=== PATIENT | male | born 1980 ===

== ENCOUNTER 2022-07-08 10:50 | Inpatient (IN) | payer OTHER ==
[~2022-07-08] VITALS: Ht 180.3 cm; Wt 118.8 kg
[2022-07-08] MEDS ORDERED: SYNTHROID75 MCG PO (12:21)
[2022-07-08] MEDS ORDERED: PEPCID AC20 MG PO (12:22)
[2022-07-08] MEDS ORDERED: PROTONIX40 MG PO (12:22)
[2022-07-17] MEDS ORDERED: INTESTINEX680 M1 PO (08:23)
[2022-07-17] MEDS ORDERED: HYOSCYAMINE0.125 M1 SL (08:23)
[2022-07-17] MEDS ORDERED: TRAM1TAB98 PO (08:23)
== END 2022-07-17 10:36 | disposition home or self-care (01) | DRG 330 ==
LOC: O/R 07-11 08:00 → SURH 07-11 12:45
PROVIDERS: ADMIT Surgery; ATTEND Surgery
PROC: 0DBP4ZZ Excision of Rectum, Percutaneous Endoscopic Approach (ICD-10-PCS; 2022-07-11)
PROC: 07BC4ZZ Excision of Pelvis Lymphatic, Percutaneous Endoscopic Approach (ICD-10-PCS; 2022-07-11)
PROC: 0DJD8ZZ Inspection of Lower Intestinal Tract, Via Natural or Artificial Opening Endoscopic (ICD-10-PCS; 2022-07-11)
PROC: 0DTN4ZZ Resection of Sigmoid Colon, Percutaneous Endoscopic Approach (ICD-10-PCS; principal; 2022-07-11 17:45)
DX: C20 Malignant neoplasm of rectum (principal); K56.7 Ileus, unspecified; K91.89 Other postprocedural complications and disorders of digestive system; R19.4 Change in bowel habit; I10 Essential (primary) hypertension; E03.9 Hypothyroidism, unspecified; G47.30 Sleep apnea, unspecified

== ENCOUNTER 2022-08-08 06:00 | Day surgery (SDC) | payer OTHER ==
[~2022-08-08 06:00] MED LIST: HYOSCYAMINE0.125 M1 SL; INTESTINEX680 M1 PO; PEPCID AC20 MG PO; PROTONIX40 MG PO; SYNTHROID75 MCG PO; TRAM1TAB98 PO
[2022-08-08] MEDS ORDERED: TRAM1TAB98 PO (08:05)
== END 2022-08-08 11:10 | disposition home or self-care (01) ==
LOC: CIR.AMB 06:00
PROVIDERS: ATTEND Surgery
DX: C18.7 Malignant neoplasm of sigmoid colon (principal); R19.4 Change in bowel habit; Z20.822 Contact with and (suspected) exposure to COVID-19

== ENCOUNTER 2023-04-21 06:00 | Day surgery (SDC) | payer OTHER ==
[2023-04-16 11:16] LABS: URINE APPEARANCE Clear; URINE BILIRRUBIN Negative (NEGATIVE); URINE BLOOD Negative; URINE COLOR Yellow; URINE GLUCOSE Negative (NEGATIVE); URINE LEUKOCYTE Negative; URINE NITRATE Negative; URINE PROTEIN Negative (NEGATIVE); URINE UROBILINOGEN 0.2 E.U./dl
[2023-04-16 11:18] LABS: URINE RBC 3.7 uL (0.0-20.8)
[2023-04-16 11:20] LABS: HEMOGLOBIN 15.5 g/dL (13-16.00); MEAN CELL VOLUME 88.4 fL (80.0-100.00); MEAN CORPUSCULAR HEMOGLOBIN 31.2 pg (27.00-32.0); MEAN CORPUSCULAR HGB CONC 35.3 g/dl (32.0-36.0); PLATELET COUNT 175 K/uL (150-450); RED BLOOD COUNT 4.98 M/uL (4.00-6.00); RED CELL DISTRIBUTION WIDTH 12.6 % (11.5-14.5)
[2023-04-16 11:35] LABS: URINE BACTERIA 3.7 uL (0.0-1933); URINE EPITHELIAL CELLS 1.3 uL (0.0-38.8); URINE WBC 0.4 uL (0.0-23.2)
[2023-04-16 11:39] LABS: INR 1.02; PARTIAL THROMBOPLASTIN TIME 29.1 SECONDS (22.0-34.0); PROTHROMBIN TIME 10.7 SECONDS (9.0-11.5)
[2023-04-16 11:40] LABS: ALBUMIN 4.3 gm/dL (3.4-5.0); BILIRUBIN TOTAL 0.89 mg/dL (0.3-1.2); CALCIUM 9.6 mg/dL (8.5-10.1); CREATININE SERUM 1.09 mg/dL (0.70-1.30); GFR 73.15; GLOBULINA 3.6 G/DL (2.4-3.5); POTASSIUM 4.1 mEq/L (3.5-5.1); TOTAL PROTEIN 7.9 gm/dL (6.4-8.2)
[2023-04-21] MEDS ORDERED: TRAM1TAB98 PO (11:26)
== END 2023-04-21 13:00 | disposition home or self-care (01) ==
LOC: CIR.AMB 06:00
PROVIDERS: ATTEND Surgery
DX: C18.7 Malignant neoplasm of sigmoid colon (principal); R19.4 Change in bowel habit; I10 Essential (primary) hypertension

== ENCOUNTER 2024-09-09 06:59 | Day surgery (SDC) | payer OTHER ==
[~2024-09-09 06:59] MED LIST changes: +ZEPBOUND2.5 MG/0.5 SQ
[2024-09-09] MEDS ORDERED: CEFAZOLIN SODIUM 1,000 MG VIAL ONE (13:28)
[2024-09-09] MEDS ORDERED: BUPIVACAINE HCL/MPF 0.5% 30ML VIAL ONE (16:01)
[2024-09-09] MEDS ORDERED: LIDOCAINE HCL 1%/EPINEPHRINE 20ML VIAL IJ ONE (16:02)
[2024-09-09] MEDS ORDERED: HEPARIN SODIUM,PORCINE/PF 100 UNIT/ML SYRINGE IV ONE (16:42)
[2024-09-09] MEDS ORDERED: TRAM1TAB98 PO (17:22)
== END 2024-09-09 20:10 | disposition home or self-care (01) ==
LOC: CIR.AMB 06:59
PROVIDERS: ATTEND Surgery
DX: C18.7 Malignant neoplasm of sigmoid colon (principal); R59.0 Localized enlarged lymph nodes
CPT/HCPCS: 36561; C1751